=== PATIENT | female | born 1965 | race African-American/Black ===

== ENCOUNTER 2016-10-31 12:09 | Emergency (ER) | payer MEDICAID ==
[~2016-10-31] VITALS: Ht 162.6 cm; Wt 144.0 kg
[~2016-10-31 12:09] MED LIST: ALBU6.7H IH; BUDE10.2 INH; CLIN300C93 PO; OXYC5CAP4 PO
[2016-10-31] MEDS ORDERED: ONDANSETRON ODT 8 MG ONE (13:16)
[2016-10-31] MEDS ORDERED: ONDANSETRON ODT 8 MG PO ONE (13:30)
[2016-10-31 13:45] LABS: ASPARTATE AMINO TRANSFERASE 9 U/L (15-37); BLOOD UREA NITROGEN 9 mg/dL (7-18)
[2016-10-31 13:57] LABS: HCG UR OBC PASS
[2016-10-31 14:38] VITALS: BP 189/112
[2016-10-31 14:39] LABS: IS PT STATUS REG ER OR PRE ER? YES
== END 2016-10-31 15:10 | disposition home or self-care (01) ==
LOC: ED 14:55
DX: R10.84 Generalized abdominal pain (principal); R11.2 Nausea with vomiting, unspecified; I10 Essential (primary) hypertension; E11.9 Type 2 diabetes mellitus without complications; M19.90 Unspecified osteoarthritis, unspecified site; J44.9 Chronic obstructive pulmonary disease, unspecified; E78.00 Pure hypercholesterolemia, unspecified; E66.01 Morbid (severe) obesity due to excess calories; Z85.9 Personal history of malignant neoplasm, unspecified; F17.200 Nicotine dependence, unspecified, uncomplicated
CPT/HCPCS: 36415; 80053; 81003; 81025; 83690; 84484; 85025; 93005; 99285; Q0162

== ENCOUNTER 2016-12-05 15:37 | Emergency (ER) | payer MEDICAID ==
[~2016-12-05] VITALS: Ht 162.6 cm; Wt 147.7 kg
[~2016-12-05 15:37] MED LIST changes: +CLIN300C8 PO; -CLIN300C93 PO; +OXYC5CAP2 PO; -OXYC5CAP4 PO
[2016-12-05] MEDS ORDERED: ASPIRIN 81 MG TABLET CHEW PO ONE (16:00)
[2016-12-05] MEDS ORDERED: SODIUM CHLORIDE FLUSH 10ML SYR IVF ONE (16:00)
[2016-12-05] MEDS ORDERED: SODIUM CHLORIDE 0.9% 1,000ML IVBOLUS ONE (16:00)
[2016-12-05 17:24] LABS: ASPARTATE AMINO TRANSFERASE 14 U/L (15-37); BLOOD UREA NITROGEN 20 mg/dL (7-18)
[2016-12-05 17:28] LABS: IS PT STATUS REG ER OR PRE ER? YES
[2016-12-05 17:43] LABS: HEMATOCRIT 38.9 % (34.6-47.8); HEMOGLOBIN 12.3 g/dL (11.7-16.4); WHITE BLOOD COUNT 6.6 x10^3/uL (3.4-10)
[2016-12-05] MEDS ORDERED: ASPIRIN 81 MG TABLET CHEW ONE (18:38)
[2016-12-05 22:07] VITALS: BP 147/87
== END 2016-12-05 22:11 | disposition home or self-care (01) ==
LOC: ED 22:05
DX: R53.1 Weakness (principal); E78.00 Pure hypercholesterolemia, unspecified; Z85.9 Personal history of malignant neoplasm, unspecified; J44.9 Chronic obstructive pulmonary disease, unspecified; M19.90 Unspecified osteoarthritis, unspecified site; I10 Essential (primary) hypertension; E11.9 Type 2 diabetes mellitus without complications; E66.01 Morbid (severe) obesity due to excess calories; Z68.43 Body mass index [BMI] 50.0-59.9, adult; F17.200 Nicotine dependence, unspecified, uncomplicated
CPT/HCPCS: 36415; 71020; 80053; 81003; 83880; 84484; 85025; 93005; 99285

== ENCOUNTER 2017-05-18 20:53 | Inpatient (IN) | payer MEDICAID ==
[~2017-05-18] VITALS: Ht 162.6 cm; Wt 150.1 kg
[2017-05-18] MEDS ORDERED: ALBUTEROL SULFATE 2.5 MG/3 ML ONE (21:06)
[2017-05-18] MEDS ORDERED: ALBUTEROL SULFATE 2.5MG/0.5ML ONE (21:06)
[2017-05-18] MEDS ORDERED: methylPREDNISolone SOD SUCC 125 MG/2 ML ONE (21:15)
[2017-05-18] MEDS ORDERED: LISI2.5T PO (21:17)
[2017-05-18] MEDS ORDERED: METF500T4 PO (21:17)
[2017-05-18 21:25] LABS: BASOPHILS % (AUTO) 0 % (0-1); EOSINOPHILS # (AUTO) 0.07 x10^3/uL (0-0.4); EOSINOPHILS % (AUTO) 1 % (1-7); LYMPHOCYTES # (AUTO) 0.97 x10^3/uL (1-3.4); LYMPHOCYTES % (AUTO) 9 % (22-44); MD NO; MEAN CORPUSCULAR HEMOGLOBIN 28.2 pg (27.0-34.8); MEAN CORPUSCULAR HGB CONC 32.1 g/dL (32.4-35.8); MEAN CORPUSCULAR VOLUME 87.8 fL (80-100); MEAN PLATELET VOLUME 8.4 fL (7.4-10.4); MONOCYTES # (AUTO) 0.55 x10^3/uL (0.2-0.8); MONOCYTES % (AUTO) 5 % (2-9); NEUTROPHILS # (AUTO) 8.75 x10^3/uL (1.8-6.8); NEUTROPHILS % (AUTO) 85 % (42-75); PLATELET COUNT 238 x10^3/uL (130-400); RED BLOOD COUNT 4.32 x10^6/uL (3.82-5.3); RED CELL DISTRIBUTION WIDTH 15.5 % (9.6-15.2)
[2017-05-18] MEDS ORDERED: methylPREDNISolone SOD SUCC 125 MG/2 ML IVPush ONE (21:30)
[2017-05-18] MEDS ORDERED: ALBUTEROL SULFATE 2.5 MG/3 ML NPPB ONE (21:30)
[2017-05-18] MEDS ORDERED: ALBUTEROL/IPRATROPIUM 2.5MG/0.5MG, 3 ML NPPB ONE (21:30)
[2017-05-18 21:32] LABS: PROTHROMBIN TIME 10.3 Seconds (9.6-11.5)
[2017-05-18 21:35] LABS: ALANINE AMINOTRANSFERASE 12 U/L (12-78); ALBUMIN 3.3 g/dL (3.4-5.0); ANION GAP 6 mmol/L (5-15); CALCIUM 8.4 mg/dL (8.5-10.1); CHLORIDE 101 mmol/L (98-107); CREATININE 1.02 mg/dL (0.55-1.02)
[2017-05-18 21:40] LABS: ALKALINE PHOSPHATASE 89 U/L (45-117); BILIRUBIN,TOTAL 0.3 mg/dL (0.2-1.0); TOTAL PROTEIN 8.2 g/dL (6.4-8.2); TROPONIN I < 0.015 ng/mL (0.000-0.045)
[2017-05-18] MEDS ORDERED: OMNIPAQUE 350 MG/ML, 100ML BOTTLE ONE (23:00)
[2017-05-18] MEDS ORDERED: SODIUM CHLORIDE 0.9%, 500ML IVBOLUS ONE (23:30)
[2017-05-18] MEDS ORDERED: CEFTRIAXONE PMX 1GM/50ML 50 ML IV ONE (23:30)
[2017-05-18] MEDS ORDERED: AZITHROMYCIN 500 MG in SODIUM CHLORIDE 0.9% 250 ML IV ONE (23:30)
[2017-05-18] MEDS ORDERED: CEFTRIAXONE PMX 1GM/50ML 50 ML ONE (23:48)
[2017-05-19] MEDS ORDERED: ONDANSETRON ODT 4 MG PO PRN
[2017-05-19] MEDS ORDERED: DOCUSATE 100 MG CAPSULE PO PRN
[2017-05-19] MEDS ORDERED: ACETAMINOPHEN 325 MG TABLET PO PRN
[2017-05-19] MEDS ORDERED: TEMAZEPAM 15 MG CAPSULE PO PRN
[2017-05-19] MEDS ORDERED: hydrALAzine 20 MG/ML, 1ML IVPush PRN
[2017-05-19] MEDS ORDERED: OXYcodone IR 5MG TABLET PO PRN
[2017-05-19 00:30] VITALS: BP 110/74
[2017-05-19] MEDS: SODIUM CHLORIDE 0.9% 1,000 ML IV SCH ×2 (01:27→14:49)
[2017-05-19] MEDS: methylPREDNISolone SOD SUCC 40 MG/ML IVPush SCH ×4 (02:00→20:30)
[2017-05-19] MEDS: ENOXAPARIN 40 MG/0.4 ML SQ SCH (02:00)
[2017-05-19 03:10] VITALS: BP 106/67
[2017-05-19] MEDS: ALBUTEROL/IPRATROPIUM 2.5MG/0.5MG, 3 ML HHN SCH ×3 (06:15→19:42)
[2017-05-19 07:16] VITALS: BP 144/78
[2017-05-19] MEDS: INSULIN LISPRO 100 UNITS/ML, PEN SQ-INSULIN SCH ×4 (08:44→20:30)
[2017-05-19] MEDS: metFORMIN 500 MG TABLET PO SCH ×2 (08:47→20:30)
[2017-05-19] MEDS: FLUTICASONE/VILANTEROL 200-25MCG/INH INH SCH (11:36)
[2017-05-19 14:00] VITALS: BP 125/81
[2017-05-19 19:02] VITALS: BP 117/79
[2017-05-20] MEDS: AZITHROMYCIN 500 MG in SODIUM CHLORIDE 0.9% 250 ML IV SCH (00:28)
[2017-05-20 01:04] VITALS: BP 120/89
[2017-05-20] MEDS: ALBUTEROL/IPRATROPIUM 2.5MG/0.5MG, 3 ML HHN SCH ×4 (01:49→19:34)
[2017-05-20] MEDS: methylPREDNISolone SOD SUCC 40 MG/ML IVPush SCH ×3 (02:35→14:54)
[2017-05-20] MEDS: ENOXAPARIN 40 MG/0.4 ML SQ SCH (02:36)
[2017-05-20 04:57] LABS: BASOPHILS # (AUTO) 0.01 x10^3/uL (0-0.1); BASOPHILS % (AUTO) 0 % (0-1); EOSINOPHILS % (AUTO) 0 % (1-7); LYMPHOCYTES # (AUTO) 0.69 x10^3/uL (1-3.4); LYMPHOCYTES % (AUTO) 10 % (22-44); MD NO; MEAN CORPUSCULAR HEMOGLOBIN 28.3 pg (27.0-34.8); MEAN CORPUSCULAR HGB CONC 31.7 g/dL (32.4-35.8); MEAN CORPUSCULAR VOLUME 89.3 fL (80-100); MEAN PLATELET VOLUME 8.7 fL (7.4-10.4); MONOCYTES % (AUTO) 5 % (2-9); NEUTROPHILS # (AUTO) 5.65 x10^3/uL (1.8-6.8); NEUTROPHILS % (AUTO) 85 % (42-75); PLATELET COUNT 226 x10^3/uL (130-400); RED BLOOD COUNT 4.21 x10^6/uL (3.82-5.3); RED CELL DISTRIBUTION WIDTH 15.6 % (9.6-15.2)
[2017-05-20 05:13] LABS: ANION GAP 5 mmol/L (5-15); CHLORIDE 103 mmol/L (98-107)
[2017-05-20 05:18] LABS: CALCIUM 8.8 mg/dL (8.5-10.1); CHOL/HDL RATIO 2.1; CHOLESTEROL, TOTAL 148 mg/dL (140-239); CREATININE 0.67 mg/dL (0.55-1.02); HDL CHOL % 47 % (28-40); HDL CHOLESTEROL (DIRECT) 69 mg/dL (40-60); LDL CHOLESTEROL,CALCULATED 62 mg/dL (54-169); LDL/HDL RATIO 0.9 (0.5-3.0); TRIGLYCERIDES 87 mg/dL (50-200); VLDL CHOLESTEROL 17 mg/dL (0-25)
[2017-05-20] MEDS: INSULIN LISPRO 100 UNITS/ML, PEN SQ-INSULIN SCH ×4 (07:00→21:50)
[2017-05-20 07:12] VITALS: BP 136/72
[2017-05-20] MEDS: metFORMIN 500 MG TABLET PO SCH ×2 (09:06→21:36)
[2017-05-20] MEDS: LISINOPRIL 5 MG TABLET PO SCH (09:07)
[2017-05-20] MEDS: FLUTICASONE/VILANTEROL 200-25MCG/INH INH SCH (09:07)
[2017-05-20] MEDS: CEFTRIAXONE PMX 1GM/50ML 50 ML IV SCH (12:34)
[2017-05-20 13:31] VITALS: BP 137/87
[2017-05-20 19:02] VITALS: BP 152/82
[2017-05-21 00:36] VITALS: BP 160/92
[2017-05-21] MEDS: CEFTRIAXONE PMX 1GM/50ML 50 ML IV SCH ×3 (00:45→23:11)
[2017-05-21] MEDS: ALBUTEROL/IPRATROPIUM 2.5MG/0.5MG, 3 ML HHN SCH ×4 (01:53→20:00)
[2017-05-21] MEDS ORDERED: methylPREDNISolone SOD SUCC 40 MG/ML IVPush SCH (02:00)
[2017-05-21] MEDS: AZITHROMYCIN 500 MG in SODIUM CHLORIDE 0.9% 250 ML IV SCH (02:08)
[2017-05-21] MEDS: ENOXAPARIN 40 MG/0.4 ML SQ SCH (02:09)
[2017-05-21 07:40] VITALS: BP 158/83
[2017-05-21] MEDS: LISINOPRIL 5 MG TABLET PO SCH (08:46)
[2017-05-21] MEDS: INSULIN LISPRO 100 UNITS/ML, PEN SQ-INSULIN SCH ×4 (08:46→21:00)
[2017-05-21] MEDS: metFORMIN 500 MG TABLET PO SCH ×2 (08:46→22:55)
[2017-05-21] MEDS: FLUTICASONE/VILANTEROL 200-25MCG/INH INH SCH (08:46)
[2017-05-21 14:02] VITALS: BP 142/89
[2017-05-21 19:14] VITALS: BP 145/82
[2017-05-22] MEDS: ENOXAPARIN 40 MG/0.4 ML SQ SCH (01:37)
[2017-05-22] MEDS: AZITHROMYCIN 500 MG in SODIUM CHLORIDE 0.9% 250 ML IV SCH (01:37)
[2017-05-22 01:40] VITALS: BP 149/80
[2017-05-22] MEDS: ALBUTEROL/IPRATROPIUM 2.5MG/0.5MG, 3 ML HHN SCH (01:57)
[2017-05-22] MEDS: INSULIN LISPRO 100 UNITS/ML, PEN SQ-INSULIN SCH ×2 (07:00→11:00)
[2017-05-22 08:16] VITALS: BP 127/80
[2017-05-22] MEDS: FLUTICASONE/VILANTEROL 200-25MCG/INH INH SCH (08:34)
[2017-05-22] MEDS: LISINOPRIL 5 MG TABLET PO SCH (08:34)
[2017-05-22] MEDS: metFORMIN 500 MG TABLET PO SCH (08:34)
[2017-05-22] MEDS ORDERED: PRED5TAB PO (09:56)
[2017-05-22] MEDS ORDERED: CEFD300C37 PO (09:56)
[2017-05-22] MEDS: CEFTRIAXONE PMX 1GM/50ML 50 ML IV SCH (11:30)
== END 2017-05-22 14:10 | disposition home or self-care (01) | DRG 193 ==
LOC: ED 22:07 → EDIP 23:27 → 4WST 05-19 00:36
PROVIDERS: ADMIT Hospitalist; ATTEND Family Medicine
DX: J18.9 Pneumonia, unspecified organism (principal); J96.21 Acute and chronic respiratory failure with hypoxia; Z99.81 Dependence on supplemental oxygen; J44.0 Chronic obstructive pulmonary disease with (acute) lower respiratory infection; J44.1 Chronic obstructive pulmonary disease with (acute) exacerbation; Z68.43 Body mass index [BMI] 50.0-59.9, adult; I11.9 Hypertensive heart disease without heart failure; E66.01 Morbid (severe) obesity due to excess calories; E11.9 Type 2 diabetes mellitus without complications; E78.00 Pure hypercholesterolemia, unspecified; E78.5 Hyperlipidemia, unspecified; F17.210 Nicotine dependence, cigarettes, uncomplicated; I25.10 Atherosclerotic heart disease of native coronary artery without angina pectoris; Z82.3 Family history of stroke; Z82.49 Family history of ischemic heart disease and other diseases of the circulatory system; Z83.3 Family history of diabetes mellitus; Z88.0 Allergy status to penicillin; Z71.6 Tobacco abuse counseling
CPT/HCPCS: 36415; 71045; 71275; 80048; 80053; 80061; 82962; 83880; 84145; 84484; 85025; 85610; 85730; 87040; 93005; 93306; 94640; 96365; 96375; J0456; J0696; J1650; J7613; J7620; Q9967; J1815; J2920; J2930; J7030; J7040; J7050; J7512

== ENCOUNTER 2017-06-14 15:29 | Inpatient (IN) | payer MEDICAID ==
[~2017-06-14] VITALS: Ht 175.3 cm; Wt 157.0 kg
[~2017-06-14 15:29] MED LIST changes: +CEFD300C37 PO; +LISI2.5T PO; +METF500T4 PO; +PRED5TAB PO
[2017-06-14] MEDS ORDERED: NALOXONE 1 MG/ML, 2ML ONE (16:25)
[2017-06-14] MEDS ORDERED: ONDANSETRON 2MG/ML, 2ML ONE (16:25)
[2017-06-14] MEDS ORDERED: NALOXONE 1 MG/ML, 2ML IVPush ONE (17:00)
[2017-06-14] MEDS ORDERED: ONDANSETRON 2MG/ML, 2ML IVPush ONE (17:00)
[2017-06-14 17:19] LABS: BASOPHILS # (AUTO) 0.01 x10^3/uL (0-0.1); BASOPHILS % (AUTO) 0 % (0-1); EOSINOPHILS # (AUTO) 0.07 x10^3/uL (0-0.4); EOSINOPHILS % (AUTO) 1 % (1-7); LYMPHOCYTES # (AUTO) 1.07 x10^3/uL (1-3.4); LYMPHOCYTES % (AUTO) 13 % (22-44); MD NO; MEAN CORPUSCULAR HGB CONC 31.9 g/dL (32.4-35.8); MEAN PLATELET VOLUME 9.1 fL (7.4-10.4); MONOCYTES # (AUTO) 1.02 x10^3/uL (0.2-0.8); MONOCYTES % (AUTO) 12 % (2-9); NEUTROPHILS # (AUTO) 6.06 x10^3/uL (1.8-6.8); NEUTROPHILS % (AUTO) 74 % (42-75); PLATELET COUNT 220 x10^3/uL (130-400); RED BLOOD COUNT 4.27 x10^6/uL (3.82-5.3); RED CELL DISTRIBUTION WIDTH 16.8 % (9.6-15.2)
[2017-06-14 17:31] LABS: CHLORIDE 104 mmol/L (98-107)
[2017-06-14 17:38] LABS: ALANINE AMINOTRANSFERASE 16 U/L (12-78); ALBUMIN 3.3 g/dL (3.4-5.0); ALKALINE PHOSPHATASE 92 U/L (45-117); ANION GAP 6 mmol/L (5-15); BILIRUBIN,TOTAL 0.3 mg/dL (0.2-1.0); CALCIUM 8.6 mg/dL (8.5-10.1); CREATININE 0.69 mg/dL (0.55-1.02); TOTAL PROTEIN 7.4 g/dL (6.4-8.2)
[2017-06-14 17:39] LABS: ACETAMINOPHEN < 2 mcg/mL (10-30); SALICYLATE LEVEL < 1.7 mg/dL (2.8-20.0)
[2017-06-14] MEDS ORDERED: BISACODYL 10 MG SUPP PR PRN (18:30)
[2017-06-14] MEDS ORDERED: POLYETHYLENE GLYCOL 17 GM PACKET PO PRN (18:30)
[2017-06-14] MEDS ORDERED: ONDANSETRON 2MG/ML, 2ML IVPush PRN (18:30)
[2017-06-14 19:10] LABS: HEMOGLOBIN A1C 6.2 % (4.2-6.3)
[2017-06-14 19:29] VITALS: BP 130/84
[2017-06-14] MEDS ORDERED: ALBUTEROL SULFATE 2.5 MG/3 ML NPPB PRN (20:00)
[2017-06-14] MEDS: SODIUM CHLORIDE 0.9% 1,000 ML IV SCH (20:12)
[2017-06-15 01:17] VITALS: BP 123/74
[2017-06-15 05:45] LABS: BASOPHILS # (AUTO) 0.03 x10^3/uL (0-0.1); BASOPHILS % (AUTO) 0 % (0-1); EOSINOPHILS # (AUTO) 0.06 x10^3/uL (0-0.4); EOSINOPHILS % (AUTO) 1 % (1-7); LYMPHOCYTES # (AUTO) 1.06 x10^3/uL (1-3.4); LYMPHOCYTES % (AUTO) 16 % (22-44); MD NO; MEAN CORPUSCULAR HEMOGLOBIN 28.2 pg (27.0-34.8); MEAN CORPUSCULAR HGB CONC 31.8 g/dL (32.4-35.8); MEAN CORPUSCULAR VOLUME 88.6 fL (80-100); MEAN PLATELET VOLUME 9.3 fL (7.4-10.4); MONOCYTES # (AUTO) 0.71 x10^3/uL (0.2-0.8); MONOCYTES % (AUTO) 11 % (2-9); NEUTROPHILS # (AUTO) 4.85 x10^3/uL (1.8-6.8); NEUTROPHILS % (AUTO) 72 % (42-75); PLATELET COUNT 203 x10^3/uL (130-400); RED BLOOD COUNT 3.95 x10^6/uL (3.82-5.3); RED CELL DISTRIBUTION WIDTH 16.6 % (9.6-15.2)
[2017-06-15 05:56] LABS: CHLORIDE 104 mmol/L (98-107)
[2017-06-15 06:07] LABS: ALANINE AMINOTRANSFERASE 13 U/L (12-78); ALKALINE PHOSPHATASE 89 U/L (45-117); ANION GAP 5 mmol/L (5-15); BILIRUBIN,TOTAL 0.4 mg/dL (0.2-1.0); CALCIUM 8.4 mg/dL (8.5-10.1); TOTAL PROTEIN 6.9 g/dL (6.4-8.2)
[2017-06-15 07:10] VITALS: BP 131/84
[2017-06-15] MEDS: SODIUM CHLORIDE 0.9% 1,000 ML IV SCH ×2 (08:07→21:19)
[2017-06-15] MEDS: LISINOPRIL 5 MG TABLET PO SCH (08:08)
[2017-06-15] MEDS: SENNA/DOCUSATE TABLET PO SCH (08:08)
[2017-06-15] MEDS ORDERED: DEXTROSE 50%, 50ML SYRINGE IVPush PRN (08:30)
[2017-06-15] MEDS ORDERED: GLUCAGON 1 MG IM PRN (08:30)
[2017-06-15] MEDS ORDERED: DEXTROSE 4 GM TAB.CHEW PO PRN (08:30)
[2017-06-15] MEDS: SODIUM CHLORIDE FLUSH 10ML SYR IVF SCH ×2 (09:55→21:00)
[2017-06-15] MEDS: FLUTICASONE/VILANTEROL 200-25MCG/INH INH SCH (09:55)
[2017-06-15 12:25] VITALS: BP 115/83
[2017-06-15 18:28] VITALS: BP 110/71
[2017-06-16 01:53] VITALS: BP 124/79
[2017-06-16 06:55] VITALS: BP 91/54
[2017-06-16 08:40] VITALS: BP 92/62
[2017-06-16] MEDS: FLUTICASONE/VILANTEROL 200-25MCG/INH INH SCH (08:43)
[2017-06-16] MEDS: SENNA/DOCUSATE TABLET PO SCH (08:43)
[2017-06-16] MEDS: LISINOPRIL 5 MG TABLET PO SCH (08:44)
[2017-06-16] MEDS: SODIUM CHLORIDE FLUSH 10ML SYR IVF SCH (08:44)
[2017-06-16 09:32] LABS: MICROSCOPIC NOT IND
[2017-06-16 09:36] LABS: CULTURE INDICATED? NO
[2017-06-16 09:44] LABS: AMPHETAMINE SCREEN, URINE Negative (Negative); BARBITURATE SCREEN, URINE Negative (Negative); BENZODIAZEPINE SCREEN, URINE Negative (Negative); CANNABINOID SCREEN, URINE Negative (Negative); COCAINE SCREEN, URINE Negative (Negative); METHADONE SCREEN, URINE Negative (Negative); OPIATE SCREEN, URINE Negative (Negative)
[2017-06-16] MEDS: SODIUM CHLORIDE 0.9% 1,000 ML IV SCH (11:10)
[2017-06-16 12:16] VITALS: BP 110/75
== END 2017-06-16 18:20 | disposition home or self-care (01) | DRG 917 ==
LOC: ED 16:44 → EDIP 17:37 → 4NOR 18:37
PROVIDERS: ADMIT Hospitalist; ATTEND Hospitalist
DX: T40.2X1A Poisoning by other opioids, accidental (unintentional), initial encounter (principal); J96.20 Acute and chronic respiratory failure, unspecified whether with hypoxia or hypercapnia; Z68.43 Body mass index [BMI] 50.0-59.9, adult; E44.1 Mild protein-calorie malnutrition; E66.01 Morbid (severe) obesity due to excess calories; E11.9 Type 2 diabetes mellitus without complications; I10 Essential (primary) hypertension; E78.00 Pure hypercholesterolemia, unspecified; N81.4 Uterovaginal prolapse, unspecified; M13.0 Polyarthritis, unspecified; E78.5 Hyperlipidemia, unspecified; J43.9 Emphysema, unspecified; F17.200 Nicotine dependence, unspecified, uncomplicated; Y92.89 Other specified places as the place of occurrence of the external cause
CPT/HCPCS: 36415; 71045; 76830; 80053; 80307; 80329; 81003; 82962; 83036; 85025; 93005; 96374; G0480; J2310; J7030

== ENCOUNTER 2017-07-06 02:43 | Emergency (ER) | payer MEDICAID ==
[~2017-07-06] VITALS: Ht 162.6 cm; Wt 140.0 kg
[2017-07-06] MEDS ORDERED: GABA600T2 PO (03:20)
[2017-07-06] MEDS ORDERED: FERR325T18 PO (03:20)
[2017-07-06] MEDS ORDERED: LISI-167 PO (03:20)
[2017-07-06] MEDS ORDERED: ROSU20TA PO (03:20)
[2017-07-06] MEDS ORDERED: AMLO5TAB2 PO (03:20)
[2017-07-06] MEDS ORDERED: RANI150C PO (03:20)
[2017-07-06] MEDS ORDERED: OXYB5TAB7 PO (03:20)
[2017-07-06] MEDS ORDERED: methylPREDNISolone SOD SUCC 125 MG/2 ML ONE (03:29)
[2017-07-06] MEDS ORDERED: methylPREDNISolone SOD SUCC 125 MG/2 ML IVP ONE (03:30)
[2017-07-06] MEDS ORDERED: ALBUTEROL SULFATE 2.5 MG/3 ML NPPB ONE (03:30)
[2017-07-06] MEDS ORDERED: ALBUTEROL SULFATE 2.5 MG/3 ML ONE (03:34)
[2017-07-06 03:36] LABS: BASOPHILS # (AUTO) 0.01 x10^3/uL (0-0.1); BASOPHILS % (AUTO) 0 % (0-1); EOSINOPHILS % (AUTO) 2 % (1-7); LYMPHOCYTES # (AUTO) 1.15 x10^3/uL (1-3.4); LYMPHOCYTES % (AUTO) 18 % (22-44); MD NO; MEAN CORPUSCULAR HEMOGLOBIN 28.1 pg (27.0-34.8); MEAN CORPUSCULAR HGB CONC 31.8 g/dL (32.4-35.8); MEAN CORPUSCULAR VOLUME 88.2 fL (80-100); MEAN PLATELET VOLUME 8.1 fL (7.4-10.4); MONOCYTES # (AUTO) 0.67 x10^3/uL (0.2-0.8); MONOCYTES % (AUTO) 10 % (2-9); NEUTROPHILS # (AUTO) 4.67 x10^3/uL (1.8-6.8); NEUTROPHILS % (AUTO) 71 % (42-75); PLATELET COUNT 244 x10^3/uL (130-400); RED BLOOD COUNT 4.33 x10^6/uL (3.82-5.3); RED CELL DISTRIBUTION WIDTH 16.7 % (9.6-15.2)
[2017-07-06 03:48] LABS: ALANINE AMINOTRANSFERASE 12 U/L (12-78); ALBUMIN 3.2 g/dL (3.4-5.0); ANION GAP 7 mmol/L (5-15); CALCIUM 8.4 mg/dL (8.5-10.1); CHLORIDE 106 mmol/L (98-107); CREATININE 0.72 mg/dL (0.55-1.02)
[2017-07-06 03:52] LABS: ALKALINE PHOSPHATASE 75 U/L (45-117); BILIRUBIN,TOTAL 0.3 mg/dL (0.2-1.0); TOTAL PROTEIN 7.4 g/dL (6.4-8.2); TROPONIN I < 0.015 ng/mL (0.000-0.045)
[2017-07-06 04:27] VITALS: BP 118/63
== END 2017-07-06 04:59 | disposition home or self-care (01) ==
LOC: ED 03:54
DX: J44.1 Chronic obstructive pulmonary disease with (acute) exacerbation (principal); R06.00 Dyspnea, unspecified; D64.9 Anemia, unspecified; E11.9 Type 2 diabetes mellitus without complications; E66.01 Morbid (severe) obesity due to excess calories; E78.00 Pure hypercholesterolemia, unspecified; M19.90 Unspecified osteoarthritis, unspecified site; Z59.0 Homelessness
CPT/HCPCS: 36415; 71045; 80053; 83880; 84484; 85025; 93005; 94640; 96374; 99285; J2930; J7613

== ENCOUNTER 2017-08-10 23:32 | Inpatient (IN) | payer MEDICAID ==
[~2017-08-10] VITALS: Ht 162.6 cm; Wt 131.7 kg
[~2017-08-10 23:32] MED LIST changes: +AMLO5TAB2 PO; +FERR325T18 PO; +GABA600T2 PO; +LISI-167 PO; +OXYB5TAB7 PO; +RANI150C PO; +ROSU20TA PO
[2017-08-11 00:25] LABS: MEAN CORPUSCULAR HEMOGLOBIN 27.5 pg (27.0-34.8); MEAN CORPUSCULAR HGB CONC 31.7 g/dL (32.4-35.8); MEAN PLATELET VOLUME 9.4 fL (7.4-10.4); PLATELET COUNT 252 x10^3/uL (130-400)
[2017-08-11 00:30] LABS: MD YES
[2017-08-11 00:31] LABS: ALBUMIN 3.5 g/dL (3.4-5.0); ANION GAP 3 mmol/L (5-15); CALCIUM 8.8 mg/dL (8.5-10.1); CHLORIDE 107 mmol/L (98-107)
[2017-08-11 00:34] LABS: TROPONIN I < 0.015 ng/mL (0.000-0.045)
[2017-08-11 00:38] LABS: EOS#(MANUAL) 0.07 x10^3/uL (0.0-0.4); EOS% (MANUAL) 1 % (1-7); LYMPHS% (MANUAL) 26 % (22-44); MONOS#(MANUAL) 0.66 x10^3/uL (0.3-2.7); MONOS% (MANUAL) 9 % (2-9); SEG#(MANUAL) 4.67 x10^3/uL (1.8-6.8); SEGS% (MANUAL) 64 % (42-75)
[2017-08-11 00:40] LABS: ANISOCYTOSIS 1+
[2017-08-11 00:41] LABS: <PLATELET ESTIMATE> ADEQUATE; LARGE PLATELETS 1+
[2017-08-11] MEDS ORDERED: TEMAZEPAM 15 MG CAPSULE PO PRN (02:30)
[2017-08-11] MEDS ORDERED: GUAIFENESIN/DM 200-20MG, 10ML UDC PO PRN (02:30)
[2017-08-11] MEDS ORDERED: ACETAMINOPHEN 325 MG TABLET PO PRN (02:30)
[2017-08-11] MEDS ORDERED: ONDANSETRON ODT 4 MG PO PRN (02:30)
[2017-08-11] MEDS ORDERED: LABETALOL 5MG/ML, 20ML IVPush PRN (02:30)
[2017-08-11] MEDS: NICOTINE 21 MG/24 HR PATCH.TD24 TD SCH ×2 (02:30→21:41)
[2017-08-11] MEDS ORDERED: ALBUTEROL/IPRATROPIUM 2.5MG/0.5MG, 3 ML ONE (03:17)
[2017-08-11 03:20] VITALS: BP 123/78
[2017-08-11] MEDS: GABAPENTIN 300 MG CAPSULE PO SCH ×4 (03:33→21:45)
[2017-08-11] MEDS: HEPARIN 5,000 UNITS/ML, 1ML SQ SCH ×3 (03:34→20:14)
[2017-08-11 06:54] VITALS: BP 98/67
[2017-08-11] MEDS: INSULIN LISPRO 100 UNITS/ML, PEN SQ-INSULIN SCH ×4 (07:00→21:40)
[2017-08-11] MEDS: ALBUTEROL/IPRATROPIUM 2.5MG/0.5MG, 3 ML NPPB SCH ×5 (07:00→19:50)
[2017-08-11] MEDS ORDERED: LISINOPRIL 10 MG TABLET PO SCH (09:00)
[2017-08-11] MEDS ORDERED: methylPREDNISolone SOD SUCC 40 MG/ML IVPush SCH (09:00)
[2017-08-11] MEDS ORDERED: metFORMIN 500 MG TABLET PO SCH (09:00)
[2017-08-11] MEDS ORDERED: AMLODIPINE 5 MG TABLET PO SCH (09:00)
[2017-08-11] MEDS: FAMOTIDINE 20 MG TABLET PO SCH ×2 (09:26→21:45)
[2017-08-11] MEDS: OXYBUTYNIN CHLORIDE 5 MG TABLET PO SCH ×2 (09:26→21:45)
[2017-08-11 12:04] VITALS: BP 85/53
[2017-08-11 12:07] VITALS: BP 86/59
[2017-08-11 17:14] VITALS: BP 99/60
[2017-08-11] MEDS ORDERED: SODIUM CHLORIDE 0.9%, 500ML IVBOLUS ONE (17:30)
[2017-08-11 20:47] VITALS: BP 95/66
[2017-08-11] MEDS: ATORVASTATIN 40 MG TABLET PO SCH (21:45)
[2017-08-12 02:02] VITALS: BP 93/51
[2017-08-12] MEDS: HEPARIN 5,000 UNITS/ML, 1ML SQ SCH ×3 (04:32→21:05)
[2017-08-12 05:52] LABS: BASOPHILS % (AUTO) 0 % (0-1); EOSINOPHILS % (AUTO) 0 % (1-7); LYMPHOCYTES # (AUTO) 0.67 x10^3/uL (1-3.4); LYMPHOCYTES % (AUTO) 7 % (22-44); MD NO; MEAN CORPUSCULAR HEMOGLOBIN 27.6 pg (27.0-34.8); MEAN CORPUSCULAR HGB CONC 31.3 g/dL (32.4-35.8); MEAN CORPUSCULAR VOLUME 88.3 fL (80-100); MEAN PLATELET VOLUME 9.8 fL (7.4-10.4); MONOCYTES # (AUTO) 0.08 x10^3/uL (0.2-0.8); MONOCYTES % (AUTO) 1 % (2-9); NEUTROPHILS # (AUTO) 8.59 x10^3/uL (1.8-6.8); NEUTROPHILS % (AUTO) 92 % (42-75); PLATELET COUNT 248 x10^3/uL (130-400); RED BLOOD COUNT 5.14 x10^6/uL (3.82-5.3); RED CELL DISTRIBUTION WIDTH 16.8 % (9.6-15.2)
[2017-08-12 06:02] LABS: ANION GAP 7 mmol/L (5-15); CALCIUM 8.7 mg/dL (8.5-10.1); CHLORIDE 102 mmol/L (98-107)
[2017-08-12 06:03] LABS: CREATININE 0.67 mg/dL (0.55-1.02)
[2017-08-12 06:41] VITALS: BP 106/75
[2017-08-12] MEDS: INSULIN LISPRO 100 UNITS/ML, PEN SQ-INSULIN SCH ×4 (07:00→21:11)
[2017-08-12] MEDS: ALBUTEROL/IPRATROPIUM 2.5MG/0.5MG, 3 ML NPPB SCH ×5 (07:15→21:33)
[2017-08-12] MEDS: FAMOTIDINE 20 MG TABLET PO SCH ×2 (08:34→21:05)
[2017-08-12] MEDS: OXYBUTYNIN CHLORIDE 5 MG TABLET PO SCH ×2 (08:34→21:05)
[2017-08-12] MEDS: GABAPENTIN 300 MG CAPSULE PO SCH ×3 (08:34→21:05)
[2017-08-12] MEDS ORDERED: LISINOPRIL 10 MG TABLET PO SCH (09:00)
[2017-08-12] MEDS ORDERED: AMLODIPINE 5 MG TABLET PO SCH (09:00)
[2017-08-12 14:29] VITALS: BP 109/70
[2017-08-12 19:47] VITALS: BP 105/65
[2017-08-12] MEDS: NICOTINE 21 MG/24 HR PATCH.TD24 TD SCH (21:00)
[2017-08-12] MEDS: ATORVASTATIN 40 MG TABLET PO SCH (21:05)
[2017-08-13 01:14] VITALS: BP 100/63
[2017-08-13] MEDS: HEPARIN 5,000 UNITS/ML, 1ML SQ SCH ×2 (05:50→11:51)
[2017-08-13 06:12] LABS: ANION GAP 4 mmol/L (5-15); CHLORIDE 106 mmol/L (98-107)
[2017-08-13 06:14] LABS: MEAN CORPUSCULAR HEMOGLOBIN 27.3 pg (27.0-34.8); MEAN CORPUSCULAR HGB CONC 31.1 g/dL (32.4-35.8); MEAN PLATELET VOLUME 9.5 fL (7.4-10.4); PLATELET COUNT 222 x10^3/uL (130-400); RED CELL DISTRIBUTION WIDTH 16.7 % (9.6-15.2)
[2017-08-13 06:16] LABS: CALCIUM 9.1 mg/dL (8.5-10.1); CREATININE 0.56 mg/dL (0.55-1.02)
[2017-08-13 06:57] LABS: BASOPHILS # (AUTO) 0.01 x10^3/uL (0-0.1); BASOPHILS % (AUTO) 0 % (0-1); EOSINOPHILS # (AUTO) 0.02 x10^3/uL (0-0.4); EOSINOPHILS % (AUTO) 0 % (1-7); LYMPHOCYTES # (AUTO) 1.31 x10^3/uL (1-3.4); LYMPHOCYTES % (AUTO) 21 % (22-44); MD SCAN; MONOCYTES # (AUTO) 0.63 x10^3/uL (0.2-0.8); MONOCYTES % (AUTO) 10 % (2-9); NEUTROPHILS % (AUTO) 68 % (42-75)
[2017-08-13] MEDS: INSULIN LISPRO 100 UNITS/ML, PEN SQ-INSULIN SCH ×3 (07:00→15:43)
[2017-08-13] MEDS: ALBUTEROL/IPRATROPIUM 2.5MG/0.5MG, 3 ML NPPB SCH ×3 (07:15→15:55)
[2017-08-13 07:20] VITALS: BP 124/85
[2017-08-13] MEDS: FAMOTIDINE 20 MG TABLET PO SCH (07:59)
[2017-08-13] MEDS: GABAPENTIN 300 MG CAPSULE PO SCH ×2 (07:59→15:42)
[2017-08-13] MEDS: OXYBUTYNIN CHLORIDE 5 MG TABLET PO SCH (07:59)
[2017-08-13 12:37] VITALS: BP 116/78
== END 2017-08-13 17:00 | disposition home or self-care (01) | DRG 189 ==
LOC: ED 23:50 → EDIP 08-11 01:51 → 4EST 08-11 02:55
PROVIDERS: ADMIT Internal Medicine; ATTEND Hospitalist
DX: J96.01 Acute respiratory failure with hypoxia (principal); E87.3 Alkalosis; E11.42 Type 2 diabetes mellitus with diabetic polyneuropathy; E66.01 Morbid (severe) obesity due to excess calories; J44.1 Chronic obstructive pulmonary disease with (acute) exacerbation; Z68.42 Body mass index [BMI] 45.0-49.9, adult; I11.9 Hypertensive heart disease without heart failure; E78.00 Pure hypercholesterolemia, unspecified; E78.5 Hyperlipidemia, unspecified; F17.200 Nicotine dependence, unspecified, uncomplicated; G89.4 Chronic pain syndrome; K21.9 Gastro-esophageal reflux disease without esophagitis; Z99.81 Dependence on supplemental oxygen; Z59.0 Homelessness; Z88.0 Allergy status to penicillin
CPT/HCPCS: 36415; 71045; 80048; 82040; 82962; 83880; 84484; 85025; 93005; 94640; 99285; J1644; J7620; J1815; J2920; J7040; J7512

== ENCOUNTER 2018-04-13 18:57 | Emergency (ER) | payer MEDICAID ==
[~2018-04-13] VITALS: Ht 162.6 cm; Wt 157.0 kg
[~2018-04-13 18:57] MED LIST changes: +AMLO-150 PO; -AMLO5TAB2 PO; +METF500T17 PO; -METF500T4 PO
[2018-04-13] MEDS ORDERED: ASPIRIN 81 MG TABLET CHEW PO ONE (20:00)
--- NOTE | 2018-04-13 20:08 | NUR ---
NO ANSWER WHEN CALLED FOR TRIAGE X1
--- NOTE | 2018-04-13 20:35 | NUR ---
PT TO ROOM AT THIS TIME.
[2018-04-13 21:11] LABS: BASOPHILS # (AUTO) 0.02 x10^3/uL (0-0.1); BASOPHILS % (AUTO) 0 % (0-1); EOSINOPHILS # (AUTO) 0.16 x10^3/uL (0-0.4); EOSINOPHILS % (AUTO) 2 % (1-7); LYMPHOCYTES # (AUTO) 1.47 x10^3/uL (1-3.4); LYMPHOCYTES % (AUTO) 16 % (22-44); MD NO; MEAN CORPUSCULAR HGB CONC 32.3 g/dL (32.4-35.8); MEAN CORPUSCULAR VOLUME 89.7 fL (80-100); MEAN PLATELET VOLUME 8.8 fL (7.4-10.4); MONOCYTES # (AUTO) 0.35 x10^3/uL (0.2-0.8); MONOCYTES % (AUTO) 4 % (2-9); NEUTROPHILS # (AUTO) 7.01 x10^3/uL (1.8-6.8); NEUTROPHILS % (AUTO) 78 % (42-75); PLATELET COUNT 211 x10^3/uL (130-400); RED BLOOD COUNT 4.23 x10^6/uL (3.82-5.3); RED CELL DISTRIBUTION WIDTH 14.4 % (9.6-15.2)
[2018-04-13 21:17] LABS: ALBUMIN 3.4 g/dL (3.4-5.0); ANION GAP 6 mmol/L (5-15); CALCIUM 8.5 mg/dL (8.5-10.1); CHLORIDE 104 mmol/L (98-107)
[2018-04-13 21:23] LABS: ALANINE AMINOTRANSFERASE 12 U/L (12-78); ALKALINE PHOSPHATASE 89 U/L (45-117); BILIRUBIN,TOTAL 0.3 mg/dL (0.2-1.0); CREATININE 0.79 mg/dL (0.55-1.02); TOTAL PROTEIN 8.1 g/dL (6.4-8.2); TROPONIN I < 0.015 ng/mL (0.000-0.045)
[2018-04-13] MEDS ORDERED: ASPIRIN 81 MG TABLET CHEW ONE (21:47)
--- NOTE | 2018-04-13 22:11 | NUR ---
PT PAUL'Quoc. PT PROVIDED WITH CAB VOUCHER FOR RIDE TO [facility]. RN CALLED TO CONFIRM ROOM, WAS TOLD THAT THE DAY ROOM IS AVAILABLE.
[2018-04-13 22:12] VITALS: BP 134/76
== END 2018-04-13 22:14 | disposition home or self-care (01) ==
LOC: ED 21:43
DX: R07.2 Precordial pain (principal)
CPT/HCPCS: 36415; 71045; 80053; 84484; 85025; 93005; 99284

== ENCOUNTER 2018-04-14 23:34 | Emergency (ER) | payer MEDICAID ==
[~2018-04-14] VITALS: Ht 162.6 cm; Wt 150.0 kg
--- NOTE | 2018-04-14 23:49 | NUR ---
PT WAS FOUND LETHARGIC ON COUCH NOT TALKING TO FAMILY WHO CALLED 911, PT A AND O X 4 AND STATES HER FAMILY DOES NOT WANT HER THER BUT DO NOT WANT HER GOING TO HOMELESS CARE HOME EITHER
[2018-04-15 00:52] LABS: MEAN CORPUSCULAR HGB CONC 32.3 g/dL (32.4-35.8); MEAN CORPUSCULAR VOLUME 89.7 fL (80-100); MEAN PLATELET VOLUME 8.9 fL (7.4-10.4); PLATELET COUNT 209 x10^3/uL (130-400); RED BLOOD COUNT 3.96 x10^6/uL (3.82-5.3); RED CELL DISTRIBUTION WIDTH 15.2 % (9.6-15.2)
[2018-04-15 01:03] LABS: ALANINE AMINOTRANSFERASE 13 U/L (12-78); ALBUMIN 3.2 g/dL (3.4-5.0); ANION GAP 3 mmol/L (5-15); CALCIUM 8.4 mg/dL (8.5-10.1); CHLORIDE 106 mmol/L (98-107); CREATININE 0.85 mg/dL (0.55-1.02); SALICYLATE LEVEL 1.9 mg/dL (2.8-20.0)
[2018-04-15 01:07] LABS: ALKALINE PHOSPHATASE 84 U/L (45-117); BILIRUBIN,TOTAL 0.2 mg/dL (0.2-1.0); TOTAL PROTEIN 7.6 g/dL (6.4-8.2); TROPONIN I < 0.015 ng/mL (0.000-0.045)
[2018-04-15 01:08] LABS: BASOPHILS # (AUTO) 0.03 x10^3/uL (0-0.1); BASOPHILS % (AUTO) 0 % (0-1); EOSINOPHILS # (AUTO) 0.19 x10^3/uL (0-0.4); EOSINOPHILS % (AUTO) 3 % (1-7); LYMPHOCYTES # (AUTO) 1.28 x10^3/uL (1-3.4); LYMPHOCYTES % (AUTO) 17 % (22-44); MD SCAN; MONOCYTES # (AUTO) 0.67 x10^3/uL (0.2-0.8); MONOCYTES % (AUTO) 9 % (2-9); NEUTROPHILS # (AUTO) 5.23 x10^3/uL (1.8-6.8); NEUTROPHILS % (AUTO) 71 % (42-75)
[2018-04-15 01:10] LABS: ACETAMINOPHEN < 2 mcg/mL (10-30)
--- NOTE | 2018-04-15 02:09 | NUR ---
BREAK RN: PT. RESITNG ON [facility] WITH IRIS. BED SANTIAGO REMOVED FROM UNDER PT; SANTIAGO EMPTY. SKIN CDI. VS UPDATED AND STABLE. PT. DENIES NEEDS. STATES "THE SAID HE IS SENDING ME HOME."
[2018-04-15 02:10] VITALS: BP 112/59
== END 2018-04-15 03:10 | disposition home or self-care (01) ==
LOC: ED 04-15 00:45
DX: R55 Syncope and collapse (principal); Z72.9 Problem related to lifestyle, unspecified; E66.01 Morbid (severe) obesity due to excess calories; I10 Essential (primary) hypertension; E11.9 Type 2 diabetes mellitus without complications; J44.9 Chronic obstructive pulmonary disease, unspecified; E78.00 Pure hypercholesterolemia, unspecified; F17.200 Nicotine dependence, unspecified, uncomplicated; Z88.0 Allergy status to penicillin; Z90.89 Acquired absence of other organs
CPT/HCPCS: 36600; 71045; 80053; 80307; 80329; 82803; 83880; 84484; 85025; 93005; 99284; G0480

== ENCOUNTER 2018-11-14 13:16 | Emergency (ER) | payer MEDICAID ==
[~2018-11-14] VITALS: Ht 162.6 cm; Wt 159.0 kg
[2018-11-14 13:40] VITALS: BP 107/62
== END 2018-11-14 15:54 | disposition other institution (70) ==
LOC: ED 15:45
DX: L89.321 Pressure ulcer of left buttock, stage 1 (principal); L89.311 Pressure ulcer of right buttock, stage 1; M79.671 Pain in right foot; F17.200 Nicotine dependence, unspecified, uncomplicated; I10 Essential (primary) hypertension; E11.9 Type 2 diabetes mellitus without complications; E78.00 Pure hypercholesterolemia, unspecified; J44.9 Chronic obstructive pulmonary disease, unspecified; E66.01 Morbid (severe) obesity due to excess calories; Z68.44 Body mass index [BMI] 60.0-69.9, adult
CPT/HCPCS: 36415; 80053; 82010; 83605; 83690; 85025; 85610; 93005; 99284

== ENCOUNTER 2018-11-15 01:34 | Emergency (ER) | payer MEDICAID ==
[~2018-11-15] VITALS: Ht 162.6 cm; Wt 160.0 kg
[2018-11-15 03:52] VITALS: BP 129/71
== END 2018-11-15 04:31 | disposition home or self-care (01) ==
LOC: ED 02:00
DX: R42 Dizziness and giddiness (principal); I25.2 Old myocardial infarction; J44.9 Chronic obstructive pulmonary disease, unspecified; E78.00 Pure hypercholesterolemia, unspecified; E11.9 Type 2 diabetes mellitus without complications; F17.200 Nicotine dependence, unspecified, uncomplicated; E66.01 Morbid (severe) obesity due to excess calories; Z68.44 Body mass index [BMI] 60.0-69.9, adult
CPT/HCPCS: 36415; 71045; 80048; 80307; 82040; 85025; 93005; 99284

== ENCOUNTER 2018-11-19 15:21 | Inpatient (IN) | payer MEDICAID ==
[~2018-11-19] VITALS: Ht 162.6 cm; Wt 140.0 kg
[2018-11-25 07:20] VITALS: BP 114/73
== END 2018-11-25 14:35 | DRG 812 ==
LOC: 3E 16:27
PROVIDERS: ADMIT Psychiatry & Neurology Psychosomatic Medicine; ATTEND Psychiatry & Neurology Psychosomatic Medicine
DX: T50.992A Poisoning by other drugs, medicaments and biological substances, intentional self-harm, initial encounter (principal); F33.2 Major depressive disorder, recurrent severe without psychotic features; E66.01 Morbid (severe) obesity due to excess calories; G62.9 Polyneuropathy, unspecified; Z68.43 Body mass index [BMI] 50.0-59.9, adult; K57.92 Diverticulitis of intestine, part unspecified, without perforation or abscess without bleeding; E11.9 Type 2 diabetes mellitus without complications; D53.9 Nutritional anemia, unspecified; E78.5 Hyperlipidemia, unspecified; F17.200 Nicotine dependence, unspecified, uncomplicated; G89.29 Other chronic pain; I10 Essential (primary) hypertension; J44.9 Chronic obstructive pulmonary disease, unspecified; K21.9 Gastro-esophageal reflux disease without esophagitis; Z59.0 Homelessness; Z79.84 Long term (current) use of oral hypoglycemic drugs; Z79.899 Other long term (current) drug therapy; Z91.018 Allergy to other foods; Y92.89 Other specified places as the place of occurrence of the external cause
CPT/HCPCS: 36415; 80053; 80061; 80307; 81003; 82140; 82607; 82962; 83036; 84439; 84443; 85025; 85651; 86592; 93005; 99284

== ENCOUNTER 2019-04-08 06:04 | Emergency (ER) | payer MEDICAID ==
[~2019-04-08] VITALS: Ht 162.6 cm; Wt 172.0 kg
[~2019-04-08 06:04] MED LIST changes: -ALBU6.7H IH; +ALBU6.7H8 IH; +BUPR150T73 PO; +DULO30CA44 PO; +FAMO20TA7 PO; +FERR-51 PO; +GABA300C10 PO; -GABA600T2 PO; +GABA600T7 PO; +METF500T PO; +NICO-486 TD; +OXYB5TAB10 PO; -OXYB5TAB7 PO; -ROSU20TA PO; +ROSU20TA2 PO; +VITA1TAB19 PO
--- NOTE | 2019-04-08 06:23 | NUR ---
THIS 53YOF STATES IS COMING FROM THE ALF VIA WC AFTER RUNNING OUT OF OXYGEN IN PORTABLE TANK. PT CURRENTLY DENIES C/O CP OR ABD PAIN. PT STATES DID NOT REALIZE OXYGEN LEVELS WERE LOW IN TANK.
--- NOTE | 2019-04-08 06:53 | NUR ---
REPORT TO PINEDA COOPER.
[2019-04-08] MEDS ORDERED: FUROSEMIDE 40 MG/4 ML IV ONE (07:30)
[2019-04-08 07:54] LABS: MEAN CORPUSCULAR HEMOGLOBIN 28.8 pg (27.0-34.8); MEAN CORPUSCULAR VOLUME 89.8 fL (80-100); MEAN PLATELET VOLUME 8.6 fL (7.4-10.4); PLATELET COUNT 224 x10^3/uL (130-400); RED BLOOD COUNT 3.56 x10^6/uL (3.82-5.3); RED CELL DISTRIBUTION WIDTH 14.9 % (9.6-15.2)
[2019-04-08 08:03] LABS: ALBUMIN 3.3 g/dL (3.4-5.0); ANION GAP 3 mmol/L (5-15); CALCIUM 9.1 mg/dL (8.5-10.1); CHLORIDE 105 mmol/L (98-107); CREATININE 0.72 mg/dL (0.55-1.02)
--- NOTE | 2019-04-08 08:05 | NUR ---
PT UOB AND A FEW STEPS TO ELECTRIC WHEELCHAIR. SOB WITH EXERTION. PT TO RESTROOM WITH USE OF WHEELCHAIR.
[2019-04-08] MEDS ORDERED: FUROSEMIDE 40 MG/4 ML ONE (08:07)
[2019-04-08 08:16] VITALS: BP 143/80
[2019-04-08 08:17] LABS: BASOPHILS # (AUTO) 0.01 x10^3/uL (0-0.1); BASOPHILS % (AUTO) 0 % (0-1); EOSINOPHILS # (AUTO) 0.18 x10^3/uL (0-0.4); EOSINOPHILS % (AUTO) 2 % (1-7); LYMPHOCYTES # (AUTO) 1.05 x10^3/uL (1-3.4); LYMPHOCYTES % (AUTO) 13 % (22-44); MD SCAN; MONOCYTES # (AUTO) 0.47 x10^3/uL (0.2-0.8); MONOCYTES % (AUTO) 6 % (2-9); NEUTROPHILS # (AUTO) 6.31 x10^3/uL (1.8-6.8); NEUTROPHILS % (AUTO) 79 % (42-75)
--- NOTE | 2019-04-08 08:50 | NUR ---
THROUGHPUT: PT HAS HOME OXYGEN WITH [employer]. PT D.C AND NEEDS A TANK. CALLED [employer] WITH REQUEST FOR ACCOUNT OFFICER TO BRING A TANK
--- NOTE | 2019-04-08 09:06 | NUR ---
AFTER LASIX GIVEN PT INCONTINENT OF URINE. PT HAD BEEN IN MOTORIZED WC SO THAT SHE COULD QUICKLY GET TO THE BATHROOM BUT IT HIT HER TO FAST. PT CLEANED UP AND INTO [place]. PERMISSION OBTAINED FROM PT TO CALL HER DAUGHTER IN ATTEMPT TO GET AHOLD OF SON WHO LIVES LOCALLY. ACCORDING TO PT SON HAS HER CONCENTRATOR AT HIS HOUSE.
--- NOTE | 2019-04-08 09:08 | NUR ---
MESSAGE LEFT WITH DAUGHTER HERLINDA [phone]
--- NOTE | 2019-04-08 09:55 | NUR ---
SON STATES TELEPHONICALLYHIS MOTHER CAN COME TO HIS HOUSE WHERE HER CONCENTRATOR IS. TO PHONE HIM WHEN SHE IS ENROUTE
--- NOTE | 2019-04-08 09:57 | NUR ---
THROUGHPUT: PT WILL BE GOING TO SONS HOME AT [address], [address] CALLED [facility] FOR VAN, MAY HAVE ISSUES DUE TO PT WEIGHT. PICK AT [phone]
== END 2019-04-08 12:25 | disposition home or self-care (01) ==
LOC: ED 06:41
DX: R06.00 Dyspnea, unspecified (principal); J81.1 Chronic pulmonary edema; I10 Essential (primary) hypertension; E11.9 Type 2 diabetes mellitus without complications; J44.9 Chronic obstructive pulmonary disease, unspecified; E78.00 Pure hypercholesterolemia, unspecified; I25.2 Old myocardial infarction; E66.01 Morbid (severe) obesity due to excess calories; Z90.89 Acquired absence of other organs; Z90.49 Acquired absence of other specified parts of digestive tract; F17.200 Nicotine dependence, unspecified, uncomplicated; Z68.33 Body mass index [BMI] 33.0-33.9, adult; Z68.44 Body mass index [BMI] 60.0-69.9, adult
CPT/HCPCS: 36415; 71045; 80048; 82040; 83880; 85025; 93005; 96374; 99284; J1940

== ENCOUNTER 2020-11-08 18:26 | Emergency (ER) | payer MEDICAID ==
[~2020-11-08] VITALS: Ht 162.6 cm; Wt 160.0 kg
[~2020-11-08 18:26] MED LIST changes: -CLIN300C8 PO; +CLIN300C9 PO
--- NOTE | 2020-11-08 18:33 | NUR ---
PT KORI FROM THE BUS STATION FOR C/O SOB. PT RAN OUT OF HER O2 AND DOES NOT HAVE ANY MORE PORTABLE TANKS. PT STATED THE BUS STATION IS ON STRIKE AND WAS CAUGHT [place]OWNTOWN SABAS ON HER ELECTRIC WHEELCHAIR AND RAN OUT OF HER O2. PT USUALLY ON 3L NC. PT DENIES ANY OTHER SYMPTOMS AT THIS TIME. PT [id number]. PT CONNECTED TO MONITORS, CALL LIGHT WITHIN REACH.
[2020-11-08 18:57] VITALS: BP 123/70
--- NOTE | 2020-11-08 19:03 | NUR ---
received report from carolina khoury. transfer of care.
--- NOTE | 2020-11-08 19:30 | NUR ---
Patient/Caregiver given discharge instructions and they have confirmed that they understand the instructions. Patient transferred via 2 nurses and med transport staff and wheelchaired out via med transport staff with o2 tank at 3L nc. environmental services director spoke to pt about o2 at home and electric wheelchair being delivered back to pt home. NAD, all questions answered appropriately, denies additional needs at this time. No personal belongings left in room after discharge.
== END 2020-11-08 19:33 | disposition home or self-care (01) ==
LOC: ED 19:00
DX: J44.9 Chronic obstructive pulmonary disease, unspecified (principal); Z76.0 Encounter for issue of repeat prescription; Z99.81 Dependence on supplemental oxygen
CPT/HCPCS: 99283

== ENCOUNTER 2020-12-03 17:51 | Emergency (ER) | payer MEDICAID ==
[~2020-12-03] VITALS: Ht 162.6 cm; Wt 160.0 kg
[~2020-12-03 17:51] MED LIST changes: -LISI2.5T PO; +LISI2.5T12 PO
[2020-12-03 17:57] VITALS: BP 114/75
[2020-12-03] MEDS ORDERED: KETOROLAC 30 MG/1 ML ONE (18:23)
[2020-12-03] MEDS ORDERED: KETOROLAC 30 MG/1 ML IM ONE (18:30)
--- NOTE | 2020-12-03 18:53 | NUR ---
BREAK RN: F/U AND D/C INSTRUCTIONS GIVEN TO PT AND SHE V/U. [facility] IS HERE FOR THE PT, AND WHEELED PT TO DISCHARGE AND THEN A RIDE HOME.
== END 2020-12-03 18:55 | disposition home or self-care (01) ==
LOC: ED 18:00
DX: G89.11 Acute pain due to trauma (principal); M25.561 Pain in right knee; M25.562 Pain in left knee; E11.9 Type 2 diabetes mellitus without complications; J43.9 Emphysema, unspecified; E78.00 Pure hypercholesterolemia, unspecified; E66.01 Morbid (severe) obesity due to excess calories; Z68.44 Body mass index [BMI] 60.0-69.9, adult
CPT/HCPCS: 96372; 99283; J1885

== ENCOUNTER 2020-12-11 18:56 | Emergency (ER) | payer MEDICAID ==
[~2020-12-11] VITALS: Ht 162.6 cm; Wt 160.0 kg
[2020-12-11] MEDS ORDERED: LIDOCAINE-MPF 1%, 5ML INFIL ONE (20:00)
[2020-12-11] MEDS ORDERED: DIPH,PERTUSS(ACELL),TET VAC/PF 0.5 ML IM-VACC ONE ×2 (20:00→20:21)
--- NOTE | 2020-12-11 20:04 | NUR ---
PT MOVED TO ROOM
--- NOTE | 2020-12-11 20:15 | NUR ---
pt c/o of rt hand pinky finger laceration. bleeding controlled. no signs of infection. pt diabetic attached to monitors. vss. nadn. in [facility]. bed in low, rials engaged, call light on lap.
[2020-12-11] MEDS ORDERED: LIDOCAINE-MPF 1%, 5ML ONE (20:22)
--- NOTE | 2020-12-11 20:31 | NUR ---
SIGNAL OPERATOR AT BEDSIDE IRRIGATING PT WOUND. PT AT BEDSIDE RIGHT BEFORE WITH NUMBING OF WOUND. VSS. DUNN. DAISHA
[2020-12-11] MEDS ORDERED: NEOSPORIN OINT. PKT 1 PACKET ONE (21:00)
--- NOTE | 2020-12-11 21:00 | NUR ---
Patient is resting comfortably in bed. Bed in lowest, rails engaged, call light on lap. Vital Signs within normal limits. WCTM.
[2020-12-11 21:25] VITALS: BP 139/79
--- NOTE | 2020-12-11 21:39 | NUR ---
Patient/Caregiver given discharge instructions and they have confirmed that they understand the instructions. Patient WHEELCHAIRE TO LOBBY WITH SPU O2. NAD, all questions answered appropriately, denies additional needs at this time. No personal belongings left in room after discharge. PT TOELRATED ALL TRANSFERS WELL FROM INTO AND OUT OF WHEELCHAIR. PT AWAITING DAUGHTER TO COME PICK PT UP.
== END 2020-12-11 21:41 | disposition home or self-care (01) ==
LOC: ED 20:21
DX: S61.216A Laceration without foreign body of right little finger without damage to nail, initial encounter (principal); L03.113 Cellulitis of right upper limb; F17.200 Nicotine dependence, unspecified, uncomplicated; X58.XXXA Exposure to other specified factors, initial encounter; Y93.89 Activity, other specified; Y92.89 Other specified places as the place of occurrence of the external cause; Y99.8 Other external cause status
CPT/HCPCS: 12001; 90471; 90715; 99283